=== PATIENT | female | born 1980 | race Caucasian/White ===

== ENCOUNTER 2021-03-26 13:45 | Outpatient (CLI) | payer BC | END 2021-03-26 13:46 | disposition home or self-care (01) | LOC: CSHMRI 13:45 | PROVIDERS: ATTEND Orthopaedic Surgery | DX: S93.401D Sprain of unspecified ligament of right ankle, subsequent encounter (principal); M79.671 Pain in right foot; Q66.89 Other specified congenital deformities of feet; M89.9 Disorder of bone, unspecified; M62.89 Other specified disorders of muscle; M24.271 Disorder of ligament, right ankle ==